=== PATIENT | female | born 1940 | race Caucasian/White ===

== ENCOUNTER → 2017-04-09 | Outpatient (CLI) | payer MEDICARE, BC ==
--- NOTE | ~2017-04-09 | MR113 ---
[facility] A Service of [facility] & [facility] RADIOLOGY TEXT RESULTS PATIENT: FRANKLYN PARIS LOCATION: [facility] : 40 UNIT #: [id number] AGE: [address]: Christiano Messer MD SEX: F ORDER DR: [id number] [address] [address] [id number] O MR#: [id number] Acc #: [id number] NAME: FRANKLYN PARIS : 1940 SEX: F STUDY DATE/TIME: 04/09/2017 12:05 UNIT: [facility] ROOM: STUDY DESCRIPTION: MR Lumbar Wo Contrast Attending Physician: Christiano Messer M.D. Referring Physician: Christiano Messer M.D. Ordering Physician: Christiano Messer M.D. Primary Care Physician: Christiano Messer M.D. MRI CENTER REPORT This report is preliminary unless electronic signature is present. EXAM MRI of the lumbar spine without. HISTORY Sciatica, chronic low back pain for years, worse in the past 3 months with sciatica worse in the right than the left leg. No history of cancer surgery or injury. COMMENT MRI of the lumbar spine performed without contrast using routine 1.5T imaging technique. There is plain film comparison from 04/08/2017. There is grade 1 anterolisthesis of L3 on L4 and L4 on L5. Anterolisthesis measures about 6 mm at the 3-4 level and about 4 mm at the 4-5 level. The discs are desiccated in general 1-2 through 4-5 levels with moderate loss of disc height and multiple level mild marrow endplate degenerative changes. The conus medullaris terminates at L1-2 and is normal. There is lower lumbar dextroconvex upper lumbar levoconvex scoliosis which is relatively mild. There is also a pseudoarticulation right side of L5 with the sacrum due to partial sacralization of L5. At L1-2, there is concentric desiccated disc bulging with a superimposed extrusion posteriorly centrally about 1 cm SI dimension by 0.7 cm AP dimension and broad in the ML dimension. Extrusion extends more cephalad and caudad from the disc and is more prominent to the left than the right side. There is approximately moderate canal stenosis and there is mass effect on the left greater than right lateral recess and epnw-jg-[id number] left and milder right-side foraminal narrowing. [facility]. [facility] A Service of [facility] & [facility] RADIOLOGY TEXT RESULTS PATIENT: FRANKLYN PARIS LOCATION: [facility] : 40 UNIT #: [id number] AGE: [address]: Christiano Messer MD SEX: F ORDER DR: At L2-3, there is severe facet arthritis bilaterally with severe ligamentum flavum thickening. There is a broad-based posterior protrusion which is more prominent to the left side posterolaterally. The combination of findings result in severe canal stenosis and severe mass effect on the left greater than right lateral recess. There is also mild bilateral foraminal narrowing. At L3-4, severe facet arthritis accounts for the anterolisthesis of 3 on 4. Ytds-gs-pgvichyr ligamentum flavum thickening. There is a broad-based posterior protrusion/extrusion with more focally extruded material to the left side posterolaterally. There is severe canal stenosis. Disc material extends predominantly cephalad from the disc level but remains contiguous with it. There is gzgo-dk-xbzmguqs left and right side foraminal narrowing. At L4-5, severe facet arthritis bilaterally with anterolisthesis of 4 on 5. Mild ligamentum flavum thickening. There is a concentric desiccated disc bulge with small superimposed central extrusion which extends slightly cephalad from the disc level but remains contiguous with it. Severe central canal stenosis and mass effect on the bilateral-lateral recesses. Mild bilateral foraminal narrowing. At L5-S1, facet degenerative change, mild on the right, mkfk-vw-biwwsmae on the left. No central canal stenosis. No focal disc protrusion or extrusion. No foraminal impingement. IMPRESSION 1. Significant multiple level lumbar degenerative changes detailed above. Findings include grade 1 anterolisthesis of L3 on L4 and L4 on L5, secondary to facet arthritis. There is severe canal stenosis at the 2-3 3-4, and 4-5 levels. Disc extrusion largest at the 1-2 level. Please refer to the full description above and correlate with the patient's symptoms. 2. There is a pseudoarticulation of the right side of L5 with S1 associated with lower lumbar dextroconvex scoliosis. Dictated by... Rabia Estevez M.D. THIS IS AN ELECTRONICALLY VERIFIED REPORT Rabia Estevez M.D. at 04/10/2017 4:45 PM SAC/diego TD: 04/10/2017 10:05 JOB #: [id number] [facility]. [facility] A Service of [facility] RADIOLOGY TEXT RESULTS PATIENT: FRANKLYN PARIS LOCATION: [facility] : 40 UNIT #: [id number] AGE: [address]: Christiano Messer MD SEX: F ORDER DR: MRI CENTER REPORT Page 1 of 1
== END | disposition home or self-care (01) ==
LOC: SMRI 11:06
DX: F32.9 Major depressive disorder, single episode, unspecified (principal); M46.96 Unspecified inflammatory spondylopathy, lumbar region; M48.06 Spinal stenosis, lumbar region; M43.16 Spondylolisthesis, lumbar region; M51.16 Intervertebral disc disorders with radiculopathy, lumbar region
CPT/HCPCS: 72148